=== PATIENT | female | born 1950 | race Caucasian/White ===

== ENCOUNTER 2016-11-07 05:39 | Day surgery (SDC) | payer MEDICARE ==
[~2016-11-07] VITALS: Ht 157.5 cm; Wt 100.7 kg
--- NOTE | ~2016-11-07 | HP ---
PATIENT: TETE JOSEPH MEDICAL RECORD: [id number] ACCOUNT: [id number] LOCATION:[facility] : 48 ADMISSION DATE: 11/07/16 HISTORY AND PHYSICAL EXAMINATION CHIEF COMPLAINT: History of colon polyps. HISTORY OF PRESENT ILLNESS: She is here for surveillance colonoscopy. After her last colonoscopy, the patient did have some bleeding with bowel movements. It resolved without any therapy. The patient was noted to have 2 ascending colon polyps. I have personally reviewed the pathology report. I have personally reviewed the endoscopic photos as well. The patient's primary care physician is Dr. Hernandez. Her endoscopist is Dr. Vane Guerrero. The patient had a 5-cm proximal ascending colon polyp and the [place] ink was injected for tattooing. The patient is here to undergo a surveillance colonoscopy. The risks, possible complications and alternatives to procedure were explained to the patient. She elects to proceed. HOME MEDICATIONS: Glipizide, Neurontin, Trulicity, Voltaren, Diovan, hydrochlorothiazide, Januvia, Jardiance, [place] 10, methotrexate, folic acid, biotin, lactobacillus, omeprazole and Niacin. PAST MEDICAL AND SURGICAL HISTORY: Gastroesophageal reflux, breast lobular carcinoma in situ, right total hip replacement arthroplasty, right rotator cuff repair, partial mastectomy, cholecystectomy, arthritis, hypertension, sleep apnea, noninsulin dependent diabetes mellitus. SOCIAL HISTORY: Nonsmoker. REVIEW OF SYSTEMS: Negative for thyroid problems or renal disease. Review of systems is negative other than as is described above. PHYSICAL EXAMINATION: GENERAL: The patient does not appear acutely ill. She does not appear chronically ill. VITAL SIGNS: Reviewed. HEENT: External ears appear normal. Eyes: Extraocular movements are intact. NECK: Trachea is midline. CHEST: No intercostal retractions. PULMONARY: Nonlabored, no stridor. ABDOMEN: Nontender. IMPRESSION: History of complex colon polyps. PLAN: Colonoscopy and polypectomy utilizing argon plasma panel builder. TRANSINT:[id number] Voice Confirmation ID: [id number] DOCUMENT ID: [id number] HISTORY AND PHYSICAL [id number] JOSEPHTETE SMALL LAURI MOYER MD CC: ARTURO HERNANDEZ and VANE GUERRERO MD [id number] DICTATION DATE: 11/07/[address] ORDERLY: 11/07/16 [address] [facility] 11/07/16 [facility] [address] [place] [address]
--- NOTE | ~2016-11-07 | OP ---
PATIENT NAME: TETE JOSEPH MEDICAL RECORD: [id number] :48 LOCATION:D.OPS ADMISSION DATE: SURGEON: LAURI MOYER MD DATE OF OPERATION: 11/07/2016 PREOPERATIVE DIAGNOSIS: History of complex ascending colon polyps. POSTOPERATIVE DIAGNOSIS: A new ascending colon polyp near the hepatic flexure. I noted no regrowth of the other polyps. PROCEDURES: 1. Total colonoscopy to cecum. 2. Hot biopsy forceps polypectomy times 1. SURGEON: Lauri Moyer MD. X RAY NURSE: None. BLOOD LOSS: Minimal. ANESTHESIA: General. COMPLICATIONS: None. The risks, possible complications and alternatives to the procedure were explained to the patient. She elects to proceed. ENDOSCOPIC COURSE: The patient was conveyed to the endoscopy suite electively on 11/07/2016. General anesthesia was induced by the anesthesia staff. The patient was placed in the S[place] position. A digital rectal examination was performed. A colonoscope was inserted through the anus. It was easily advanced to the cecum. Following withdrawal, I irrigated and aspirated extensively. I traveled up and down the ascending colon several times. I utilized direct imaging as well as narrow band imaging. I dragged the folds. The prep was adequate. I identified 1 cm colon polyp. It was a sessile polyp. It was removed in its entirety utilizing hot biopsy forceps polypectomy technique. I then continued to withdraw the endoscope. I dragged the folds. The pullback was greater than a 14-minute pullback. Retroflexed views obtained in the rectum. I then unretroflexed the scope and removed it under direct vision. I will plan to see the patient in my office in 2-3 weeks. I plan to return the patient over to Dr. Guerrero for further endoscopic needs in the future. TRANSINT:[id number] Voice Confirmation ID: [id number] DOCUMENT ID: [id number] LAURI MOYER MD CC: ARTURO HERNANDEZ and VANE GUERRERO MD [id number] DICTATION DATE: 11/07/16 0943 IT RISK AND ASSURANCE MANAGER: 11/07/16 1146 [facility] [address] [place] [address]
[~2016-11-07 05:39] MED LIST: BIOTIN5 MG PO; DIOVAN HCT 80-11 TAB PO; FOLIC ACID1 MG PO; GLIPIZIDE10 MG PO; HYDROCODON-ACE1 EAC7 PO; HYDROCODONE-APA1 TAB PO; JANUVIA100 MG PO; JARDIANCE25 MG PO; METHOTREXATE2.5 MG PO; NEURONTIN 300300 MG PO; NIASPAN500 MG PO; OMEPRAZOLE20 M1 PO; PLAQUENIL200 MG PO; PROBIOTIC1 EAC1 PO; TRULICITY0.75 MG/0. SC; VOLTAREN75 MG PO
[2016-11-07 06:21] LABS: BASOPHILS 0.3 % (0-2); EOSINOPHILS 2.3 % (0-7); HEMATOCRIT 45.7 % (36.0-48.0); HEMOGLOBIN 14.8 g/dL (12-16); IMMATURE GRANULOCYTES 0.1 % (0-5); LYMPHOCYTES 25.2 % (15-50); MCH 29.7 pg (26.0-34.0); MCHC 32.4 g/dL (31.0-37.0); MCV 91.8 fL (80.0-100.0); MEAN PLATELET VOLUME 9.5 fL (7.4-10.4); MONOCYTES 5.7 % (2-11); NEUTROPHILS 66.4 % (40-80); RBC 4.98 10x6/uL (4.00-5.40); RDW 15.4 % (11.5-14.5); WBC 7.4 10x3/uL (4.8-10.8)
[2016-11-07 06:29] VITALS: BP 86/48; Ht 157.5 cm; Wt 100.7 kg
[2016-11-07 06:30] LABS: ANION GAP 15.6 mmol/L (8-16); CALCIUM 9.6 mg/dL (8.5-10.1); CARBON DIOXIDE 26.2 mmol/L (21.0-32.0); CREATININE - SERUM 1.1 mg/dL (0.6-1.3); POTASSIUM - SERUM 3.8 mmol/L (3.5-5.1)
[2016-11-07 06:33] LABS: APTT 29.8 SECONDS (22.8-39.4); INR 0.97 (0.85-1.17); PROTIME 12.8 SECONDS (11.6-15.0)
[2016-11-07 06:41] LABS: PLATELET COUNT 315 10x3/uL (130-400)
== END 2016-11-07 11:40 | disposition home or self-care (01) ==
LOC: D.OPS 05:39 → D.PAN 08:00 → D.OPS 08:00 → D.PAN 09:00 → D.OPS 11:40
PROVIDERS: Anesthesiology
DX: D12.2 Benign neoplasm of ascending colon (principal); I10 Essential (primary) hypertension; E11.9 Type 2 diabetes mellitus without complications; G47.30 Sleep apnea, unspecified; K21.9 Gastro-esophageal reflux disease without esophagitis; Z01.812 Encounter for preprocedural laboratory examination